=== PATIENT | male | born 1975 | race Caucasian/White ===

== ENCOUNTER 2024-12-15 17:42 | Emergency (ER) | payer OTHER, SELFPAY ==
[2024-12-15 17:44] VITALS: BP 120/76
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
== END 2024-12-15 21:32 | disposition left against medical advice (07) ==
LOC: EMR 17:42
PROVIDERS: EMERGENCY PHYSICIAN Student in an Organized Health Care Education/Training Program; FAMILY PHYSICIAN Family Medicine
DX: S22.42XA Multiple fractures of ribs, left side, initial encounter for closed fracture (principal); V59.88XA Occupant (driver) (passenger) of pick-up truck or van injured in other specified transport accidents, initial encounter
CPT/HCPCS: 99283; 71101